=== PATIENT | male | born 1955 | race Caucasian/White ===

== ENCOUNTER 2021-04-23 16:21 | Inpatient (IN) | payer OTHER ==
[2021-04-23] MEDS ORDERED: MAGNESIUM CITRATE 300 ML BOTTLE PO PRN (18:23)
[2021-04-23] MEDS ORDERED: MAGNESIUM HYDROX 2400MG/30ML ORAL SUSPENSION 30 ML CUP PO PRN (18:23)
[2021-04-23] MEDS ORDERED: BISMUTH SUBSALICYLATE 524 MG/30 ML PO PRN (18:23)
[2021-04-23] MEDS ORDERED: ACETAMINOPHEN 325 MG TABLET (FP) PO PRN ×2 (18:23)
[2021-04-23] MEDS ORDERED: ONDANSETRON *ODT* 4 MG TABLET SL PRN (18:23)
[2021-04-23] MEDS ORDERED: IBUPROFEN 400 MG TABLET (FP) PO PRN (18:23)
[2021-04-23 18:29] VITALS: BMI 24.5
[2021-04-23] MEDS ORDERED: chlordiazePOXIDE HCL 25 MG CAPSULE PO ONE (18:34)
[2021-04-23] MEDS ORDERED: chlordiazePOXIDE HCL 25 MG CAPSULE PO PRN (18:34)
[2021-04-23] MEDS: LOPERAMIDE HCL 2 MG CAPSULE PO PRN (20:29)
[2021-04-23] MEDS ORDERED: TUBERCULIN PPD 5 TU/0.1ML VIAL ID ONE (21:58)
[2021-04-23] MEDS: chlordiazePOXIDE HCL 25 MG CAPSULE PO SCH (22:43)
[2021-04-23] MEDS: MELATONIN 5 MG TABLETS PO PRN (22:44)
[2021-04-23] MEDS: THIAMINE HCL 100 MG TABLET (FP) PO SCH (22:44)
[2021-04-23] MEDS: METHOCARBAMOL 500 MG TABLET PO PRN (22:44)
[2021-04-24] MEDS: chlordiazePOXIDE HCL 25 MG CAPSULE PO SCH ×4 (05:46→22:02)
[2021-04-24] MEDS: LOPERAMIDE HCL 2 MG CAPSULE PO PRN ×2 (05:50→10:29)
[2021-04-24] MEDS: PRENATAL VITAMINS W/ FOLIC ACID TABLET (FP) PO SCH (10:25)
[2021-04-24 11:03] LABS: HEMATOCRIT 31.2 % (35.4-49); HEMOGLOBIN 10.3 GM/dL (11.7-16.9); MCH 34.6 pg (25.7-33.7); MEAN PLT VOLUME 8.1 fl (7.5-11.1); PLATELET COUNT 67 10^3/uL (134-434); RBC 2.97 M/mm3 (4.00-5.60); RDW 19.3 % (11.9-15.9); WHITE BLOOD COUNT 6.1 K/mm3 (4.0-10.0)
[2021-04-24 13:25] LABS: ALBUMIN 2.8 g/dl (3.4-5.0); BILIRUBIN,TOTAL 0.9 mg/dL (0.2-1); CREATININE 0.8 mg/dL (0.55-1.3); TOT PROT 4.8 g/dl (6.4-8.2)
[2021-04-24] MEDS: METHOCARBAMOL 500 MG TABLET PO PRN (18:11)
[2021-04-24] MEDS: MELATONIN 5 MG TABLETS PO PRN (22:01)
[2021-04-24] MEDS: THIAMINE HCL 100 MG TABLET (FP) PO SCH (22:02)
[2021-04-24] MEDS: guaiFENesin 200 MG/10 ML 10 ML UNIT-DOSE CUPS PO PRN (22:06)
[2021-04-25] MEDS ORDERED: chlordiazePOXIDE HCL 25 MG CAPSULE PO SCH (05:00)
[2021-04-25] MEDS: METHOCARBAMOL 500 MG TABLET PO PRN ×3 (06:26→22:11)
[2021-04-25] MEDS ORDERED: diazePAM 5 MG TABLET PO PRN (09:35)
[2021-04-25] MEDS: PRENATAL VITAMINS W/ FOLIC ACID TABLET (FP) PO SCH (10:17)
[2021-04-25] MEDS: hydrOXYzine PAMOATE 25 MG CAPSULE (FP) PO PRN ×2 (10:19→17:55)
[2021-04-25 12:01] LABS: HEMATOCRIT 28.7 % (35.4-49); HEMOGLOBIN 9.3 GM/dL (11.7-16.9); MCH 34.6 pg (25.7-33.7); MCHC 32.4 g/dl (32.0-35.9); MEAN CELL VOLUME 106.8 fl (80-96); MEAN PLT VOLUME 8.6 fl (7.5-11.1); PLATELET COUNT 58 10^3/uL (134-434); RBC 2.68 M/mm3 (4.00-5.60); RDW 19.1 % (11.9-15.9); WHITE BLOOD COUNT 2.6 K/mm3 (4.0-10.0)
[2021-04-25] MEDS: diazePAM 5 MG TABLET PO SCH ×2 (14:08→22:11)
[2021-04-25] MEDS: MAG HYDROX/AL HYDROX/SIMETH 30 ML UNIT-DOSE CUP PO PRN (17:59)
[2021-04-25] MEDS: guaiFENesin 200 MG/10 ML 10 ML UNIT-DOSE CUPS PO PRN (22:11)
[2021-04-25] MEDS: MELATONIN 5 MG TABLETS PO PRN (22:11)
[2021-04-25] MEDS: THIAMINE HCL 100 MG TABLET (FP) PO SCH (22:11)
[2021-04-26] MEDS ORDERED: chlordiazePOXIDE HCL 10 MG CAPSULE PO PRN
[2021-04-26] MEDS: hydrOXYzine PAMOATE 25 MG CAPSULE (FP) PO PRN ×2 (03:03→17:45)
[2021-04-26] MEDS ORDERED: chlordiazePOXIDE HCL 10 MG CAPSULE PO SCH (05:00)
[2021-04-26] MEDS: guaiFENesin 200 MG/10 ML 10 ML UNIT-DOSE CUPS PO PRN ×2 (05:01→23:32)
[2021-04-26] MEDS: MENTHOL/PHENOL 1 EACH UD MM PRN (05:03)
[2021-04-26] MEDS: METHOCARBAMOL 500 MG TABLET PO PRN ×2 (05:28→17:46)
[2021-04-26] MEDS ORDERED: AMOX TR/POT CLAV 875MG/125MG TABLETS (FP) PO ONE (09:18)
[2021-04-26] MEDS: diazePAM 5 MG TABLET PO SCH ×2 (10:14→22:06)
[2021-04-26] MEDS: PRENATAL VITAMINS W/ FOLIC ACID TABLET (FP) PO SCH (10:14)
[2021-04-26] MEDS: AMOX TR/POT CLAV 875MG/125MG TABLETS (FP) PO SCH (17:45)
[2021-04-26] MEDS: MAG HYDROX/AL HYDROX/SIMETH 30 ML UNIT-DOSE CUP PO PRN (17:47)
[2021-04-26] MEDS: MELATONIN 5 MG TABLETS PO PRN (22:06)
[2021-04-26] MEDS: THIAMINE HCL 100 MG TABLET (FP) PO SCH (22:06)
[2021-04-27] MEDS ORDERED: chlordiazePOXIDE HCL 10 MG CAPSULE PO SCH (05:00)
[2021-04-27] MEDS: AMOX TR/POT CLAV 875MG/125MG TABLETS (FP) PO SCH ×2 (07:34→17:50)
[2021-04-27] MEDS ORDERED: diazePAM 5 MG TABLET PO ONE (10:00)
[2021-04-27] MEDS: PRENATAL VITAMINS W/ FOLIC ACID TABLET (FP) PO SCH (10:12)
[2021-04-27] MEDS: hydrOXYzine PAMOATE 25 MG CAPSULE (FP) PO PRN ×3 (10:15→22:10)
[2021-04-27] MEDS: LOPERAMIDE HCL 2 MG CAPSULE PO PRN (10:15)
[2021-04-27] MEDS: THIAMINE HCL 100 MG TABLET (FP) PO SCH (22:10)
[2021-04-27] MEDS: MAG HYDROX/AL HYDROX/SIMETH 30 ML UNIT-DOSE CUP PO PRN (22:11)
[2021-04-27] MEDS: METHOCARBAMOL 500 MG TABLET PO PRN (22:11)
[2021-04-27] MEDS: MELATONIN 5 MG TABLETS PO PRN (22:11)
[2021-04-28] MEDS: MENTHOL/PHENOL 1 EACH UD MM PRN (00:18)
[2021-04-28] MEDS ORDERED: chlordiazePOXIDE HCL 10 MG CAPSULE PO ONE (05:00)
[2021-04-28] MEDS: METHOCARBAMOL 500 MG TABLET PO PRN (05:34)
[2021-04-28] MEDS: hydrOXYzine PAMOATE 25 MG CAPSULE (FP) PO PRN ×2 (05:34→10:15)
[2021-04-28] MEDS: guaiFENesin 200 MG/10 ML 10 ML UNIT-DOSE CUPS PO PRN (05:36)
[2021-04-28] MEDS ORDERED: diazePAM 5 MG TABLET PO ONE (06:00)
[2021-04-28] MEDS: AMOX TR/POT CLAV 875MG/125MG TABLETS (FP) PO SCH (07:01)
[2021-04-28 09:03] VITALS: BP 110/68; PULSE 104; TEMP 97.7
[2021-04-28] MEDS: PRENATAL VITAMINS W/ FOLIC ACID TABLET (FP) PO SCH (10:13)
[2021-04-28] MEDS: LOPERAMIDE HCL 2 MG CAPSULE PO PRN (10:15)
== END 2021-04-28 10:43 | disposition home or self-care (01) | DRG 897 ==
LOC: YASAS 16:21 → Y3N 19:30
PROVIDERS: ADMIT Allergy & Immunology; ATTEND Allergy & Immunology
PROC: HZ2ZZZZ Detoxification Services for Substance Abuse Treatment (ICD-10-PCS; principal; 2021-04-23)
DX: F10.230 Alcohol dependence with withdrawal, uncomplicated (principal); Z85.830 Personal history of malignant neoplasm of bone
CPT/HCPCS: 36415; 80053; 85027; 86780; C9803; U0003; U0005